=== PATIENT | female | born 1980 | race Caucasian/White ===

== ENCOUNTER 2022-04-14 19:36 | Observation (INO) | payer OTHER, SELFPAY ==
[2022-04-14] VITALS (34 sets, daily range): BP systolic 85–115; BP diastolic 59–73; PULSE 59–82; RESP 9–20; TEMP 36.2–36.7; O2SAT 95–100
--- NOTE | ~2022-04-14 | XR_ITS ---
EXAMINATION: XR shoulder RT min 2V INDICATION: Right shoulder pain TECHNIQUE: Four views of the right shoulder are submitted. COMPARISON: None FINDINGS: Normal alignment. No fracture. There is moderate osteoarthritis of the glenohumeral joint. Healed right-sided rib fractures are noted. Soft tissues are unremarkable. IMPRESSION: 1. Moderate osteoarthritis of the right glenohumeral joint without acute osseous abnormality. Reviewed, dictated and finalized at location F. EAD BUILDER IMPRESSION: 1. Moderate osteoarthritis of the right glenohumeral joint without acute osseou s abnormality.
--- NOTE | ~2022-04-14 | XR_ITS ---
XR chest 1V portable DATE: 04/14/2022 20:27 INDICATION: Overdose. Confusion. Slurred speech. TECHNIQUE: Portable AP chest on 04/14/20222022 hours COMPARISON: None FINDINGS: Heart size appears borderline, not optimally evaluated on AP projection because of magnific ation. No hilar or mediastinal enlargement. No pulmonary infiltrate or consolidation, pleural effusio n or pulmonary vascular congestion or pneumothorax. IMPRESSION: No active pulmonary disease Reviewed, dictated and finalized at location A. MATED MANUFACTURING INSTRUCTOR IMPRESSION: No active pulmonary disease
--- NOTE | 2022-04-14 19:53 | ECG_ITS ---
Measurements Intervals [place] Rate: 63 P: 5 TX: 160 QRS: 51 QRSD: 89 T: 39 QT: 453 QTc: 464 Interpretive Statements SINUS RHYTHM BASELINE ARTIFACT- I, III NORMAL ECG NO PREVIOUS ECG AVAILABLE FOR COMPARISON Electronically Signed On 04-14-2022 20:53:41 DESIZING MACHINE BACK TENDER by Martin Barahona D.O.
[2022-04-14 20:06] LABS: Glucose Point of Care 100 mg/dl (65-105)
--- NOTE | 2022-04-14 20:07 | PC.NURSE ---
moved from room 13 to room 8 for capnography
--- NOTE | 2022-04-14 20:11 | ED.OVERDOSE ---
HPI - Overdose General Chief Complaint: Overdose Stated Complaint: xanax and etoh OD History of Present Illness HPI Narrative: HPI limited due to altered mental status. This is a 41-year-old female, brought in by EMS after an intentional overdose. EMS reports the patient was found altered at a gas station. She stated she drank alcohol and took Xanax with intention to hurt herself. A crack pipe was also found at the scene. The patient denies suicidal ideations but is unable to state when she drank and took the Xanax. Related Data Allergies Allergy/AdvReac Type Severity Reaction Status Date / Time aspirin AdvReac Vomiting Verified 04/14/22 22:15 Review of Systems Review of Systems: Review of systems limited due to altered mental status PSYCHIATRIC: anxiety and depression. [facility] Social History Social History (Updated 04/14/22 @ 20:14 by Jeferson Milton MD) Smoking status: Smoker, status unknown Alcohol intake: current Substance use: current Substance use type: crack/cocaine, heroin and tranquilizers Exam Narrative: GENERAL: Well-developed, well-nourished, appears intoxicated wakes to voice HEAD: Normocephalic, atraumatic. EYES: Pupils 2 mm and equal bilaterally. PERRLA and EOMI. ENT: Left nares with a small amount of white foreign substance. No rhinorrhea or epistaxis. Mucous membranes moist. Oropharynx without tonsillar hypertrophy exudate or other lesions. NECK: Supple. No adenopathy or masses. No carotid bruits or JVD CHEST: Clear to auscultation. No respiratory distress. No wheezes rales or rhonchi HEART: Regular rate and rhythm. No murmur heard. Normal peripheral pulses. ABDOMEN: Soft, nontender, nondistended, normal active bowel sounds. EXTREMITIES: Normal range of motion. No edema. SKIN: Warm, dry, no rash. NEURO: No focal deficits. Sensation intact bilaterally, strength 5 5 in all extremities. alert and oriented x3, though appears intoxicated PSYCH: Depressed affect, depressed mood Course Course Emergency Course: 22:30 - VBG demonstrates mild respiratory alkalosis with pH of 7.42 and PCO2 of 36.5. Chemistries unremarkable. UA unremarkable. Patient is negative for salicylates and acetaminophen. Urine drug screen positive for opiates, amphetamines and benzodiazepines. Serum alcohol less than 10. Patient is COVID-negative and a chest x-ray is unremarkable. EKG not concerning for ischemia or arrhythmia. Discussed patient with poison control who advises it may take upwards of 12 hours before the patient metabolizes the benzodiazepines. Discussed patient with hospitalist, Dr. Ferreira, who recommends admission to ICU for observation. Discussed patient with slubber runner, Dr. Kahn, who recommends 2 L of IV fluids and maintenance fluids. Vital Signs Vital signs: Vital Signs Temperature 97.2 F L 04/14/22 19:39 Pulse Rate 75 04/14/22 19:39 Respiratory Rate 19 04/14/22 19:39 Blood Pressure 107/59 L 04/14/22 19:39 Pulse Oximetry 100 04/14/22 19:39 Oxygen Delivery Room Air 04/14/22 19:39 Temperature 98.0 F 04/14/22 22:16 Pulse Rate 73 04/14/22 22:16 Respiratory Rate 04/14/22 22:16 Blood Pressure 93/71 L 04/14/22 22:16 Pulse Oximetry 98 04/14/22 22:16 Oxygen Delivery Room Air 04/14/22 19:39 MDM - Overdose MDM Narrative Medical decision making narrative: Plan: Labs, previously glucose, EKG, imaging, end-tidal CO2 monitoring, psychiatry consultation, reassess Differential Diagnosis Differential diagnosis: Likely cocaine intoxication, poisoning by opiate or related narcotic, drug overdose and other (Alcohol intoxication, benzodiazepine intoxication, , metabolic abnormality, depression, suicidal ideations, other) Lab Data 04/14/22 20:14 04/14/22 20:14 Labs: Lab Results 04/14/22 04/14/22 04/14/22 Range/Units 20:04 20:14 20:14 WBC (4.5-10.0) K/mm3 RBC (4.2-5.4) M/mm3 Hgb (12.0-15.0) g/dL Hct
[2022-04-14 20:27] LABS: Fractional Inspired Oxygen 21 %; HCO3 VBG 23.1 mEq/l (24.0-30.0); PCO2 VBG 36.5 mmHg (42.0-48.0); PO2 VBG 47.2 mmHg (35.0-45.0)
[2022-04-14 20:29] LABS: Device ROOM AIR
[2022-04-14 20:45] LABS: Basophils Percent Auto 0.4 % (0.2-1.2); Eosinophils Absolute Auto 0.3 K/mm3 (0-0.3); Eosinophils Percent Auto 4.4 % (0-4.4); Hematocrit 37.9 % (37.0-47.0); Immature Granulocyte Absolute 0.01 K/mm3 (0.00-0.031); Immature Granulocyte Percent A 0.1 % (0-0.5); Lymphocytes Absolute Auto 2.57 K/mm3 (0.9-3.2); Lymphocytes Percent Auto 36.9 % (18.3-44.2); Mean Corpuscular HGB Conc 31.7 g/dl (32-36); Mean Corpuscular Hemoglobin 27.8 pg (26-34); Mean Corpuscular Volume 87.9 fl (80-100); Mean Platelet Volume 9.3 fl (7.4-10.4); Monocytes Absolute Auto 0.5 K/mm3 (0.1-0.6); Monocytes Percent Auto 7.7 % (2.6-8.5); Neutrophils Absolute Auto 3.5 K/mm3 (1.3-6.7); Neutrophils Percent Auto 50.5 % (45.5-73.1); Platelet Count Result 306 k/mm3 (150-375); Red Blood Count 4.31 M/mm3 (4.2-5.4); Red Cell Distribution Width 14.8 % (11.5-14.5)
[2022-04-14 20:46] LABS: Appearance Urine Clear (Clear); Bilirubin Urine Negative (Negative); Blood Urine Negative (Negative); Color Urine Yellow (Yellow); Glucose Urine UA Negative (Negative); Ketones Urine Negative (Negative); Leukocyte Esterase Ur Negative LEU/UL (Negative); Nitrate Urine Negative (Negative); Protein Urine Negative (Negative); Urobilinogen Urine 0.2 mg/dL (<2.0)
[2022-04-14 20:47] LABS: Add Urine Microscopic? NO
[2022-04-14 20:55] LABS: Salicylate < 1.0 mg/dL (2-20)
[2022-04-14 21:01] LABS: Barbiturate Screen Urine Negative (Negative); Benzodiazepines Screen Urine Positive (Negative)
[2022-04-14 21:02] LABS: Cannabinoid Screen Urine Negative (Negative); Cocaine Screen Urine Negative (Negative); Methadone Screen Urine Negative (Negative); Opiate Screen Urine Positive (Negative); Phencyclidine Screen Urine Negative (Negative)
[2022-04-14 21:20] LABS: SARS-CoV-2 RNA PCR Negative
[2022-04-14 21:44] LABS: Amphetamine Screen Urine Positive (Negative)
[2022-04-14 21:50] LABS: Alanine Aminotransferase 25 U/L (6-35); Albumin Level 4.1 g/dL (3.5-5.1); Alkaline Phosphatase 96 U/L (38-126); Anion Gap 5 mmol/L (8-16); Aspartate Amino Transferase 33 U/L (14-36); Bilirubin,Total 0.2 mg/dL (0.2-1.3); Blood Urea Nitrogen 20 mg/dL (7-17); Calcium 8.6 mg/dL (8.4-10.2); Carbon Dioxide 28 mmol/L (22-30); Chloride 106 mmol/L (98-107); Estimated CRCL calculation 70 ml/min; Estimated Glomerular Filt Rate > 60; Glucose 104 mg/dL (65-110); Potassium 4.2 mmol/L (3.4-5.0); Sodium 139 mmol/L (137-145)
[2022-04-14 21:52] LABS: Acetaminophen < 10 ug/mL (10-30); Ethanol < 10 mg/dL (<10)
[2022-04-14] MEDS: SODIUM CHLORIDE 0.9% IV 1,000 ML 999 ML IV CONT ×2 (22:14→23:39)
--- NOTE | 2022-04-14 23:06 | PM.IMHP ---
H&P: HPI History of Present Illness Date/Time: 04/14/22 23:06 Chief Complaint: Altered mental status Narrative: This is a 41-year-old female patient who has a history of depression and anxiety. The patient was found to be altered at a gas station. She stated that she drink alcohol and she took Xanax with intention to her herself. A crack pipe was also found at the scene. The patient initially denied this suicidal ideations but told me tonight that she did take the medications to harm herself. The patient was not able to say how many Xanax she took. On her VBG her pH was 7.42. Patient was positive for opioids, amphetamine, and benzodiazepines. The patient's alcohol level was less than 10. COVID test was negative. Patient is very difficult to arouse at this time. The patient's blood pressure was 94/61 and she was given IV bolus which brought her blood pressure up to 115/73. The patient was given a total of 3 IV boluses and maintenance IV fluid bag. Chest x-ray was read as no acute cardiopulmonary disease. The patient is being admitted to observation status on the date of service of 04/14/2022. Review of Systems Review of Systems: See HPI. The patient had answering questions on her own. All systems reviewed & are unremarkable except as noted in HPI and below Constitutional: Constitutional: Reports as per HPI and Reports no additional constitutional complaints Eyes: Eyes: Reports as per HPI and Reports no additional eye complaints ENT: Reports system reviewed and no additional complaints, except as documented and Reports Normal hearing present Cardiovascular: Cardiovascular: Reports no additional cardiovascular complaints Respiratory: Respiratory: Reports no additional respiratory complaints and Reports no additional respiratory complaints Gastrointestinal: Gastrointestinal: Reports as per HPI and Reports no additional gastrointestinal complaints Musculoskeletal: Musculoskeletal: Reports no additional musculoskeletal complaints Integumentary/Breasts: Skin/Breast: Reports system reviewed and no additional complaints, except as docu and Reports as per HPI Neurologic: Reports system reviewed and no additional complaints, except as documented, Reports as per HPI and Reports Normal hearing present Psychiatric: Psychiatric: Reports no additional psychiatric complaints and Reports as per HPI Endocrine: Endocrine: Reports no additional endocrine complaints Hematologic/Lymphatic: Hematologic/Lymphatic: Reports no additional hematologic/lymphatic complaints Allergic/Immunologic: Allergic/Immunologic: Reports no additional allergic/immunologic complaints [facility] Past Medical History Medical History (Updated 04/15/22 @ 00:03 by Pretty Martinez NP) Depression with anxiety Family History Family History (Updated 04/15/22 @ 00:04 by Pretty Martinez NP) Unknown No problems noted. Social History Social History (Updated 04/15/22 @ 00:04 by Pretty Martinez NP) Social History: The patient is listed as single and unemployed. The patient tells me that she does smoke a pack a cigarettes a day. Smoking status: Current every day smoker Alcohol intake: current Substance use: current Substance use type: crack/cocaine, heroin and tranquilizers Meds Home Medications and Allergies Allergies Allergy/AdvReac Type Severity Reaction Status Date / Time aspirin AdvReac Vomiting Verified 04/14/22 22:15 Vital Signs Vital Signs - 24 hr 04/14/22 19:39 04/14/22 19:55 04/14/22 19:46 Temperature 36.2 C L Pulse Rate 75 70 Respiratory Rate 19 19 17 Blood Pressure 107/59 L Pulse Oximetry 100 Oxygen Delivery Room Air 04/14/22 19:53 04/14/22 20:00 04/14/22 20:01 Temperature Pulse Rate 65 64 63 Respiratory Rate 12 18 12 Blood Pressure 107/59 L 100/63 Pulse Oximetry 96 98 Oxygen Delivery 04/14/22 20:15 04/14/22 20:27 04/14/22 20:45 Temperature Pulse Rate 59 L 65 71 Respiratory
[2022-04-15] VITALS (9 sets, daily range): BP systolic 95–132; BP diastolic 63–84; PULSE 72–88; RESP 12–22; TEMP 36.6–36.7; O2SAT 93–98
--- NOTE | 2022-04-15 00:01 | PC.NURSE ---
Patient admitted with IV fluids infusing.
[2022-04-15] MEDS: SODIUM CHLORIDE 0.9% IV 1,000 ML 125 ML IV CONT ×2 (00:41→08:14)
--- NOTE | 2022-04-15 01:12 | ADMGEN ---
This patient, Anu Quintero, was admitted to Intensive Care Unit-2. Patient/family oriented to hospital policies and general routines including ID bracelet, bed and alarms, visiting hours, pain management, procedures, bathroom and other care routines, personal items, smoking policy, room service/diet, and visiting hours. Information on how to activate the Rapid Response Team has been discussed. Patient/Family are encouraged to report perceived risks to care and to ask questions if they do not understand what they are told or what they should do.
[2022-04-15 03:42] LABS: Basophils Percent Auto 0.3 % (0.2-1.2); Eosinophils Absolute Auto 0.4 K/mm3 (0-0.3); Eosinophils Percent Auto 6.3 % (0-4.4); Hematocrit 33.5 % (37.0-47.0); Hemoglobin 10.6 g/dL (12.0-15.0); Immature Granulocyte Absolute 0.02 K/mm3 (0.00-0.031); Immature Granulocyte Percent A 0.3 % (0-0.5); Mean Corpuscular HGB Conc 31.6 g/dl (32-36); Mean Corpuscular Hemoglobin 28.2 pg (26-34); Mean Corpuscular Volume 89.1 fl (80-100); Mean Platelet Volume 9.2 fl (7.4-10.4); Monocytes Absolute Auto 0.4 K/mm3 (0.1-0.6); Monocytes Percent Auto 6.8 % (2.6-8.5); Neutrophils Absolute Auto 2.9 K/mm3 (1.3-6.7); Neutrophils Percent Auto 47.3 % (45.5-73.1); Platelet Count Result 268 k/mm3 (150-375); Red Blood Count 3.76 M/mm3 (4.2-5.4); Red Cell Distribution Width 14.9 % (11.5-14.5); White Blood Count 6.2 K/mm3 (4.5-10.0)
[2022-04-15 03:50] LABS: Lactic Acid Reflex 0.6 mmol/L (0.7-2.0)
[2022-04-15 03:52] LABS: Alanine Aminotransferase 28 U/L (6-35); Albumin Level 3.1 g/dL (3.5-5.1); Alkaline Phosphatase 81 U/L (38-126); Anion Gap 3 mmol/L (8-16); Aspartate Amino Transferase 36 U/L (14-36); Bilirubin,Total 0.1 mg/dL (0.2-1.3); Blood Urea Nitrogen 15 mg/dL (7-17); Calcium 7.8 mg/dL (8.4-10.2); Carbon Dioxide 24 mmol/L (22-30); Chloride 112 mmol/L (98-107); Estimated CRCL calculation 92 ml/min; Estimated Glomerular Filt Rate > 60; Glucose 88 mg/dL (65-110); Sodium 139 mmol/L (137-145)
--- NOTE | 2022-04-15 08:40 | WPDCNINT ---
Assessment and Plan Assessment and plan (1) Polysubstance abuse: Code(s): F19.10 - Other psychoactive substance abuse, uncomplicated Status: Acute Assessment and Plan: Patient presented with altered mental status likely related to polysubstance abuse, stated in the ER and to the hospitalist that she wanted to harm herself. She also drank alcohol -urine drug screen was positive for opiates, benzodiazepines and amphetamines -acetaminophen, salicylates and alcohol levels within normal limits -poison control was notified and suggested it may take upwards of 12 hours for benzodiazepines to be metabolizing -patient was given 3 L IV fluid boluses and is on maintenance IV fluids -patient is more awake, alert, oriented and answers to questions appropriately (2) Suicide attempt by multiple drug overdose: Code(s): T50.912A - Poisoning by multiple unspecified drugs, medicaments and biological substances, intentional self-harm, initial encounter Status: Acute Assessment and Plan: Patient with suicide behavior and intention -continue bedside sitter -continue suicide precautions -patient is medically stable --will have care coordination and crisis management evaluate the patient -patient will require placement in psychiatry unit and would need to follow-up with a psychiatrist and primary care doctor (3) COPD (chronic obstructive pulmonary disease): Code(s): J44.9 - Chronic obstructive pulmonary disease, unspecified Status: Acute Assessment and Plan: Patient states that she has a history of COPD but does not take any medication -will order p.r.n. bronchodilators (4) Essential hypertension: Code(s): I10 - Essential (primary) hypertension Status: Acute Assessment and Plan: Patient states she has essential hypertension but does not take any medications has not seen a doctor -blood pressure is currently a stable (5) Depression with anxiety: Code(s): F41.8 - Other specified anxiety disorders Status: Acute Assessment and Plan: History of Depression with anxiety, not on any medications Plan DVT prophylaxis: SCDs Stress ulcer prophylaxis: Not indicated Nutrition: Will start Regular diet Code Status: Full code Critical Care Time Spent: 43 minute Due to a high probability of clinically significant, life threatening deterioration, the patient required my highest level of preparedness to intervene emergently and I personally spent this critical care time directly and personally managing the patient. This critical care time included obtaining a history; examining the patient; pulse oximetry; ordering and review of studies; arranging urgent treatment with development of a management plan; evaluation of patient's response to treatment; frequent reassessment; and discussions with other providers. It was exclusive of separately billable procedures and treating other patients and teaching time. Please see Assessment and Plan section and the rest of the note for further information on patient assessment and treatment This dictation may have been done utilizing a voice recognition system. Attempts have been made to correct errors. However, there may be uncorrected grammatical, spelling, and recognitions errors present. Auditor Supervisor Consult Note Consult date: 04/15/22 Reason for consult: Intentional drug overdose, suicidal ideation, altered mental status HPI: Anu Quintero is a 41 year old female with past medical history of depression, anxiety, hypertension, COPD presented the ED on 04/14/2022 after being found with altered mental status and a gas station. He did state that she drank alcohol and took Xanax with intention to harm herself. A crack pipe was also found at the scene. Patient was unable to say how much Xanax she took or how much alcohol she drank. VBG demonstrated mild respiratory alkalosis, chemistries were unremarkable. UA was unremarkable. Her alcohol, sa
--- NOTE | 2022-04-15 09:22 | PC.NURSE ---
Rashad, poison control assigned to patient. No further recommendations for the patient. Recommends psych eval.
--- NOTE | 2022-04-15 10:45 | PC.NURSE ---
[place] in for crisis evaluation
--- NOTE | 2022-04-15 11:30 | PC.NURSE ---
Deep developed safety contract for patient. Care coordination and Dr. Mcgraw notified.
--- NOTE | 2022-04-15 12:00 | PC.NURSE ---
Dr. Mcgraw in for patient evaluation
--- NOTE | 2022-04-15 17:22 | PM.DS ---
DS: Admitting Diagnosis Discharge Date 04/15/22 Admitting Diagnosis ams DS: Discharge Diagnosis Discharge Diagnosis (1) Polysubstance abuse: Code(s): F19.10 - Other psychoactive substance abuse, uncomplicated Status: Acute Assessment and Plan: Patient presented with altered mental status likely related to polysubstance abuse, stated in the ER and to the hospitalist that she wanted to harm herself. She also drank alcohol -urine drug screen was positive for opiates, benzodiazepines and amphetamines -acetaminophen, salicylates and alcohol levels within normal limits -poison control was notified and suggested it may take upwards of 12 hours for benzodiazepines to be metabolizing -patient was given 3 L IV fluid boluses and is on maintenance IV fluids -patient is more awake, alert, oriented and answers to questions appropriately (2) Suicide attempt by multiple drug overdose: Code(s): T50.912A - Poisoning by multiple unspecified drugs, medicaments and biological substances, intentional self-harm, initial encounter Status: Acute Assessment and Plan: Patient with suicide behavior and intention -continue bedside sitter -continue suicide precautions -patient is medically stable --will have care coordination and crisis management evaluate the patient -patient will require placement in psychiatry unit and would need to follow-up with a psychiatrist and primary care doctor (3) COPD (chronic obstructive pulmonary disease): Code(s): J44.9 - Chronic obstructive pulmonary disease, unspecified Status: Acute Assessment and Plan: Patient states that she has a history of COPD but does not take any medication -will order p.r.n. bronchodilators (4) Essential hypertension: Code(s): I10 - Essential (primary) hypertension Status: Acute Assessment and Plan: Patient states she has essential hypertension but does not take any medications has not seen a doctor -blood pressure is currently a stable (5) Depression with anxiety: Code(s): F41.8 - Other specified anxiety disorders Status: Acute Assessment and Plan: History of Depression with anxiety, not on any medications Plan DVT prophylaxis: SCDs Stress ulcer prophylaxis: Not indicated Nutrition: Will start Regular diet Code Status: Full code Critical Care Time Spent: 43 minute Due to a high probability of clinically significant, life threatening deterioration, the patient required my highest level of preparedness to intervene emergently and I personally spent this critical care time directly and personally managing the patient. This critical care time included obtaining a history; examining the patient; pulse oximetry; ordering and review of studies; arranging urgent treatment with development of a management plan; evaluation of patient's response to treatment; frequent reassessment; and discussions with other providers. It was exclusive of separately billable procedures and treating other patients and teaching time. Please see Assessment and Plan section and the rest of the note for further information on patient assessment and treatment This dictation may have been done utilizing a voice recognition system. Attempts have been made to correct errors. However, there may be uncorrected grammatical, spelling, and recognitions errors present. DS: Summary Hospital Course Hospital Course: 41 year old female with past medical history of depression, anxiety, hypertension, COPD presented the ED on 04/14/2022 after being found with altered mental status and a gas station.? He did state that she drank alcohol and took Xanax with intention to harm herself.? A crack pipe was also found at the scene.? Patient was unable to say how much Xanax she took or how much alcohol she drank.? VBG demonstrated mild respiratory alkalosis, chemistries were unremarkable.? UA was unremarkable.? Her alcohol, salicylates and acetaminophen levels
--- NOTE | 2022-04-15 20:45 | PC.NURSE ---
blue back pack found in closet Sunday after patient discharge. Called number listed for Anu Quintero 5 times with no answer and a voice mailbox not set up. Called and left message for listed contact Caitlin Palencia to have patient call the floor.
== END 2022-04-15 17:40 | disposition home or self-care (01) ==
LOC: ANHED 22:39 → ANHICU 04-15 00:01
PROVIDERS: Nurse Practitioner; Admitting Provider Internal Medicine; Emergency Provider Preventive Medicine Aerospace Medicine; Visit Provider Student in an Organized Health Care Education/Training Program
DX: T50.912A Poisoning by multiple unspecified drugs, medicaments and biological substances, intentional self-harm, initial encounter (principal); F10.90 Alcohol use, unspecified, uncomplicated; F19.10 Other psychoactive substance abuse, uncomplicated; F14.10 Cocaine abuse, uncomplicated; F11.10 Opioid abuse, uncomplicated; F13.10 Sedative, hypnotic or anxiolytic abuse, uncomplicated; Y90.0 Blood alcohol level of less than 20 mg/100 ml; Z20.822 Contact with and (suspected) exposure to COVID-19; I10 Essential (primary) hypertension; R41.82 Altered mental status, unspecified; F41.9 Anxiety disorder, unspecified; F32.A Depression, unspecified; M19.011 Primary osteoarthritis, right shoulder; J44.9 Chronic obstructive pulmonary disease, unspecified
CPT/HCPCS: 36415; 51701; 71045; 73030; 80053; 80307; 81003; 81025; 82803; 82948; 83605; 83735; 84443; 85025; 93005; 96360; 96361; 99285; G0378; G0379; J7030; U0003; U0005